=== PATIENT | female | born 2000 | race Caucasian/White ===

== ENCOUNTER 2023-04-29 07:52 | Inpatient (IN) ==
[2023-04-29] MEDS ORDERED: Buffered Lidocaine 1% SYRIN 1 ml INTRADERM ONE (09:27)
[2023-04-29] MEDS ORDERED: Lactated Ringers 1000 ml BAG 1,000 ML IV ONE ×2 (09:27→15:33)
[2023-04-29] MEDS ORDERED: Promethazine INJ(RESTRICTED) 25 MG/ML 1 ml VIAL IV PRN (09:27)
[2023-04-29] MEDS ORDERED: Lidocaine 1% VIAL 10 MG/ML 30 ML VIAL INJ PRN (09:27)
[2023-04-29] MEDS ORDERED: Lactated Ringers 1000 ml BAG 1,000 ML IV SCH ×3 (10:00→23:45)
[2023-04-29 10:34] LABS: Urine Appearance Clear; Urine Bilirubin Negative (Negative); Urine Blood Negative (Negative); Urine Color Yellow; Urine Glucose Negative (Negative); Urine Ketones Negative (Negative); Urine Nitrite Negative (Negative); Urine Protein Negative (Negative); Urine Specific Gravity 1.013 (1.002-1.030); Urine Urobilinogen Negative (Negative)
[2023-04-29 11:22] LABS: Urine Benzodiazepine Screen None Detected (None Detect); Urine Cannabinoids Screen None Detected (None Detect); Urine Opiates Screen None Detected (None Detect)
[2023-04-29 12:45] LABS: Albumin 3.5 g/dL (3.2-5.2); Calcium 9.3 mg/dL (8.6-10.3); Creatinine, Serum 0.61 mg/dL (0.51-0.95); Globulin 3.5 g/dL (2-4); Potassium 3.7 mmol/L (3.5-5.0); Total Bilirubin 0.3 mg/dL (0.2-1.0); Uric Acid 4.8 mg/dL (2.3-6.6); eGFR CKD-EPI 131.2 (>60)
[2023-04-29 14:23] LABS: ABS Eosinophils 0.1 10^3/uL (0.0-0.5); ABS Lymphocytes 1.7 10^3/uL (1.0-4.8); ABS Monocytes 0.8 10^3/uL (0.0-0.9); ABS Neutrophils 11.6 10^3/uL (1.5-7.6); Eosinophil % 0.8 %; Hematocrit 32.2 % (35-45); Hemoglobin 10.6 g/dL (11.5-14.3); Lymphocyte % 11.9 %; Mean Corpuscular Hemoglobin 28.6 pg (27-33); Mean Corpuscular Hgb Conc 32.9 g/dL (31-36); Mean Corpuscular Volume 86.8 fL (80-97); Mean Platelet Volume 9.6 fL (7.5-11.2); Platelet Count 296 10^3/uL (150-450); Red Blood Count 3.71 10^6/uL (3.63-4.92); Red Cell Distribution Width 13.7 % (12-17); White Blood Count 14.2 10^3/uL (3.8-11.8)
[2023-04-29] MEDS ORDERED: OBEPIDURAL (200 ML) 200 ML EPIDURAL ONE (15:25)
[2023-04-29] MEDS ORDERED: Lidocaine 1.5% EPI 1:200,000 30 ML SDV ONE (15:25)
[2023-04-29] MEDS ORDERED: Phenylephrine 40 mcg/mL 10mL (400mcg) SYRINGE IV PUSH PRN ×2 (15:33)
[2023-04-29] MEDS ORDERED: Sodium Citrate/Citric Acid LIQ 15 ML UDC PO PRN (15:33)
[2023-04-29] MEDS ORDERED: OBEPIDURAL (200 ML) 200 ML EPIDURAL SCH (16:00)
[2023-04-29] MEDS ORDERED: Oxytocin in LR 20,000 MILLI.UNIT/1,000 ML BAG IV SCH (17:50)
[2023-04-29] MEDS ORDERED: Oxytocin in LR 20,000 MILLI.UNIT/1,000 ML BAG IV ONE (17:58)
[2023-04-29] MEDS ORDERED: Calcium Carb (TUMS) 500 mg CHEW TAB PO PRN (19:55)
[2023-04-29] MEDS: Lidocaine 2% JELLY 6 ML Topical TOPICAL ONE ×3 (20:33→22:41)
[2023-04-29] MEDS ORDERED: Lidocaine 2% JELLY 6 ML Topical TOPICAL ONE ×2 (22:39→23:31)
[2023-04-29] MEDS ORDERED: Glycerin ADULT 2.4 gm SUPP PR PRN (23:30)
[2023-04-29] MEDS ORDERED: Witch Hazel PAD JAR TOPICAL PRN (23:30)
[2023-04-30] MEDS: Dibucaine 1% OINT 28.35 GM TUBE PR PRN (00:14)
[2023-04-30] MEDS ORDERED: Lidocaine 1% VIAL 10 MG/ML 30 ML VIAL ONE (00:59)
[2023-04-30 07:32] LABS: ABS Basophils 0.2 10^3/uL (0.0-0.1); ABS Eosinophils 0.1 10^3/uL (0.0-0.5); ABS Lymphocytes 2.6 10^3/uL (1.0-4.8); ABS Monocytes 1.1 10^3/uL (0.0-0.9); ABS Neutrophils 13.2 10^3/uL (1.5-7.6); Eosinophil % 0.3 %; Hematocrit 31.9 % (35-45); Hemoglobin 10.6 g/dL (11.5-14.3); Lymphocyte % 15.2 %; Mean Corpuscular Hemoglobin 28.9 pg (27-33); Mean Corpuscular Hgb Conc 33.2 g/dL (31-36); Mean Corpuscular Volume 86.9 fL (80-97); Mean Platelet Volume 9.4 fL (7.5-11.2); Platelet Count 305 10^3/uL (150-450); Red Blood Count 3.67 10^6/uL (3.63-4.92); Red Cell Distribution Width 13.5 % (12-17); White Blood Count 17.1 10^3/uL (3.8-11.8)
[2023-05-01 08:19] VITALS: BP 114/68
[2023-05-01] MEDS: Dibucaine 1% OINT 28.35 GM TUBE PR PRN (11:11)
== END 2023-05-01 12:04 | disposition home or self-care (01) | DRG 560 ==
LOC: MCHOBOUT 07:52 → MCHOB 09:25
PROVIDERS: ADMIT Advanced Practice Midwife; ATTEND Advanced Practice Midwife